=== PATIENT | female | born 1960 | race Caucasian/White ===

== ENCOUNTER 2019-06-01 19:25 | Emergency (ER) | payer MEDICAID ==
[~2019-06-01] VITALS: Ht 157.5 cm; Wt 56.7 kg
[2019-06-01 19:30] VITALS: BP_SYST 103
--- NOTE | 2019-06-01 19:30 | NUR ---
Víctor mark in [facility] - 06/01/19 at 2303 by CHANDANA Site to back of left head cleansed with normal saline. Site measures approximately 1.5 inches. No dressing applied.
--- NOTE | 2019-06-01 19:30 | NUR ---
Pt BIB EMS ER with c/o head laceration and ETOH. Pt states she was at [employer] having dinner and was in the restroom and fell. Pt states she hit her head on bathroom floor. Pt states she had "a few drinks at dinner." Upon assessment, pt has about a 6cm laceration to left lower head. Moderate bleeding noted. Pt states pain 8/10. Pt ETOH. Will conitnue to monitor.
--- NOTE | 2019-06-01 19:30 | NUR ---
Patient to ER bed 4 to gown for evaluation. Side rails up. Report given to SHELDON WAGNER.
--- NOTE | 2019-06-01 19:30 | NUR ---
Patient has a 6 cm laceration to Back of head. Dr. Pastrana applied 10 polo using sterile technique. Edges well approximated. Site cleansed with normal saline. No dressing applied to site. No bleeding noted. Pt tolerated well.
--- NOTE | 2019-06-01 19:30 | NUR ---
Note undone in EDM - 06/01/19 at 2011 by CHANDANA Pt presents to ER with c/o head laceration. Pt A&Ox4. Pt states she was at [employer] having dinner and was in the restroom and fell. Pt states she hit her head on bathroom floor. Pt states she had "a few drinks at dinner." Upon assessment, pt has about a 6cm laceration to left lower head. Moderate bleeding noted. Pt states pain 8/10. Will conitnue to monitor.
--- NOTE | 2019-06-01 19:31 | NUR ---
ER at bedside examining patient.
--- NOTE | 2019-06-01 20:08 | NUR ---
Pt off unit to radiology with line service technician via gurney in stable condition.
[2019-06-01] MEDS ORDERED: NACL 0.9% 1,000 ML IV ONE (20:15)
--- NOTE | 2019-06-01 20:22 | NUR ---
Pt returned to bed 04 from radiology in stable condition.
[2019-06-01 20:29] LABS: BASOPHILS # (AUTO) 0.1 K/uL (0.0-0.2); EOSINOPHILS # (AUTO) 0.1 K/uL (0.0-0.4); EOSINOPHILS % (AUTO) 1.7 % (0.0-4.0); HEMATOCRIT 38.4 % (36-48); HEMOGLOBIN 12.9 g/dL (12.0-16.0); LYMPHOCYTES # (AUTO) 1.3 K/uL (1.0-5.5); LYMPHOCYTES % (AUTO) 17.8 % (20.5-51.5); MEAN CORPUSCULAR HEMOGLOBIN 33 pg (27-31); MEAN CORPUSCULAR HGB CONC 34 % (32-36); MEAN CORPUSCULAR VOLUME 97 fL (79.0-98.0); MONOCYTES # (AUTO) 0.6 K/uL (0.0-1.0); MONOCYTES % (AUTO) 7.8 % (1.7-9.3); NEUTROPHILS # (AUTO) 5.1 K/uL (1.8-7.7); NEUTROPHILS % (AUTO) 71.7 % (40.0-70.0); PLATELET COUNT (AUTO) 334 K/uL (130-430); RED BLOOD CELL COUNT(AUTO) 3.95 MIL/uL (4.2-6.2); RED CELL DISTRIBUTION WIDTH 12.9 % (9.0-15.0); WHITE BLOOD COUNT (AUTO) 7.2 K/uL (4.8-10.8)
--- NOTE | 2019-06-01 20:30 | NUR ---
# 20 gauge angiocath placed to L AC. Use of asceptic technique. Opsite placed over site. Blood return noted. Flushed with 10 cc of normal saline. No evidence of infiltration noted. Patient tolerated well.
[2019-06-01 20:43] LABS: CALCIUM 8.1 mg/dL (8.4-11.0); CREATININE 0.77 mg/dL (0.55-1.30); POTASSIUM 3.2 mmol/L (3.5-5.1)
[2019-06-01] MEDS ORDERED: KETOROLAC TROMETHAMINE 30 MG VIAL IVP ONE (20:45)
[2019-06-01 20:48] LABS: TOTAL BILIRUBIN 0.2 mg/dL (0.0-1.0)
--- NOTE | 2019-06-01 21:02 | NUR ---
Pt pulled out IV. No bleeding noted. notified.
--- NOTE | 2019-06-01 22:19 | NUR ---
Pt ambulated to restroom with no assist and with steady gait. Pt is A&Ox4. Will continue to monitor.
--- NOTE | 2019-06-01 23:00 | NUR ---
Roderick called for pt.
[2019-06-02] MEDS ORDERED: KETOROLAC TROMETHAMINE 60 MG/2 ML VIAL IM ONE
--- NOTE | 2019-06-02 00:16 | NUR ---
Pt asked for blanket. Warm blanket provided to pt.
[2019-06-02 01:06] VITALS: BP_SYST 112
--- NOTE | 2019-06-02 01:06 | NUR ---
Patient given written and verbal discharge instructions and verbalizes understanding. ER MD Pastrana discussed with patient the results and treatment provided. Patient in stable condition. ID arm band removed. No Rx given. Patient educated on pain management and to follow up with PMD. Pain Scale 1/10. Opportunity for questions provided and answered. Medication side effect fact sheet provided.
--- NOTE | 2019-06-02 01:09 | NUR ---
Taxi arrived. Pt escorted out to taxi. Pt ambulated unassisted with steady gait.
== END 2019-06-02 01:06 | disposition home or self-care (01) ==
LOC: SED 19:25
DX: S01.81XA Laceration without foreign body of other part of head, initial encounter (principal); W18.09XA Striking against other object with subsequent fall, initial encounter; Y93.89 Activity, other specified; Y92.091 Bathroom in other non-institutional residence as the place of occurrence of the external cause; Y99.8 Other external cause status
CPT/HCPCS: 12011; 36415; 70450; 80053; 85025; 96372; 99284; G0482; J1885; J7030